=== PATIENT | male | born 1980 | race Caucasian/White ===

== ENCOUNTER 2023-07-10 18:46 | Emergency (ER) | payer MEDICAID ==
[~2023-07-10] VITALS: Ht 185.4 cm; Wt 77.3 kg
[2023-07-10 18:49] VITALS: BP 117/80; PULSE 124; RESP 20; TEMP 98.7; O2SAT 98
[2023-07-10] MEDS ORDERED: POLOS RIGHTEYE (19:00)
== END 2023-07-10 19:24 | disposition home or self-care (01) ==
LOC: ER 18:47
DX: H10.89 Other conjunctivitis (principal)
CPT/HCPCS: 99283